=== PATIENT | female | born 1955 | race Caucasian/White ===

== ENCOUNTER 2018-07-18 13:00 | Outpatient (RCR) | payer OTHER, SELFPAY ==
--- NOTE | 2018-05-03 18:36 | PT.OIE ---
Current Diagnoses Other female genital prolapse (05/03/18) Provider Visit Care Team Role Provider Type Wilder Mcintyre, pouch maker Provider Non-Staff Primary Care Provider Specialty: Medical Address: [address] [place] [address], [id number] Email: Mirian Tay MD Attending Provider Physician Specialty: NANNY BABYSITTER Address: [address] [place] [address], [id number] Email: [email or web address] Physical Therapy Initial Evaluation PT-OP-A Visit Information Start: 05/03/18 18:12 Freq: Status: Active Protocol: Document 05/03/18 18:12 [facility] (Rec: 05/03/18 18:24 [facility] [email or web address]) Out-Patient Physical Therapy Visit Information Visit Information Visit Type Initial Evaluation Visit Start Time 14:30 Visit Stop Time 15:15 Total Visit Minutes 45 Visit Number 1 Evaluation Information Evaluation Date 05/03/18 PT-OP-B Current Condition Start: 05/03/18 18:12 Freq: Status: Active Protocol: Document 05/03/18 18:12 [facility] (Rec: 05/03/18 18:24 [facility] [email or web address]) Current Condition History of Current Condition Onset Date ongoing but worseing Current Complaints pelvic pressure, prolapse made worse with lifting or exertion History of Current Condition Mal is a 62 year old female with prolpased bladder and uterus as well as a 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 She is wanting to try strengthening her pelvic floor muscles to avoid surgery. She is currently using a pessary which is helping. She has started working on pelvic floor exercises with vaginal weights and has begun to use estriadol cream which are both seeming to help. Treatment Goals Patient/Caregiver Goals include avoiding surgery and improving pelvic floor strengh PT-OP-I Pelvic Floor Start: 05/03/18 18:12 Freq: Status: Active Protocol: Document 05/03/18 18:12 [facility] (Rec: 05/03/18 18:24 [facility] [email or web address]) Pelvic Floor Assessment Urine Pelvic Floor Surgery No Urinary Symptoms Prolapse Falling Out Feeling/Heavy Pelvic Clock Pelvic Clock 12-3 Atrophy Pelvic Clock 3-6 Atrophy Pelvic Clock 6-9 Guarding Pelvic Clock 9-12 Atrophy Prolapse Uterine Prolapse Grade 2 Cystocele Grade 2 SEMG (uV) Baseline 2 10 Second Contraction 8 Recruitment Pattern Fair Relaxation Good Holding Fair Stability of Hold Fair SEMG Stability of Rest Good Contraction Ability Voluntary Contraction Weak Manual Muscle Testing Left 3 Manual Muscle Testing Right 2 Manual Muscle Testing Anterior 3 Manual Muscle Testing Posterior 3 PT-OP-M Strength Start: 05/03/18 18:12 Freq: Status: Active Protocol: Document 05/03/18 18:12 [facility] (Rec: 05/03/18 18:24 [facility] [email or web address]) Hip Strength Hip Manual Muscle Testing Right Abduction 4 Good PT-OP-T Assessment and Plan Start: 05/03/18 18:12 Freq: Status: Active Protocol: Document 05/03/18 18:24 [facility] (Rec: 05/03/18 18:36 [facility] [email or web address]) Physical Therapy Assessment Rehab Potential Rehabilitation Potential Excellent Evaluation Complexity Number of Personal Factors/Comorbidities 0 Number of Body Systems Impaired 1-2 Clinical Presentation at Evaluation Stable Impairments Impairments Activity Tolerance Soft Tissue Mobility Strength Tone Other Impairments pelvic organ prolapse Goals Four Impairment decreased endurance of the pelvic floor Short Term Goal (STG) Improve endurance of the pelvic floor to 10 second hold time in supine STG Duration 6 weeks Three Impairment right sided hip ER weakness Adhesive Bandage Machine Operator Goal (LTG) Mal is instructed in a home exercise program for the right hip ER to help with lateral pelvic floor recruitment Two Impairment decreased right iliococcygeus recruitment Short Term Goal (STG) Improve facilitation of the right lateral wall of the levator ani STG Duration 5 weeks One Impairment weakness of the pelvic floor with pelvic organ prolapse Adhesive Bandage Machine Operator Goal (LTG) Improve strength of the pelvic floor for improved support of the bladder and uterus. LTG Duration 8 weeks Assessment Summary Assessment Mal presents to physical therapy with uterine prolapse and cystocele as well as a large fibroid tumor in the uterus. The uterus feels more prominant on her left side with internal examination. Mal is able to facilitate her pelvic floor in all parts but is very weak on the right lateral wall of the levator ani. She is also weak and tight on this side in her hip ER. Mal responded well today to EMG biofeedback and tactile cueing for pelvic floor facilitation. We will work on strengthening for her for 8 weeks and the re- evaluate if she is more supported or if she needs surgery Physical Therapy Plan Frequency and Duration Frequency of Treatment 1x/Week Duration of Treatment 8 weeks Plan of Care Start Date 05/03/18 Plan of Care End Date 06/28/18 Therapeutic Interventions Therapeutic Interventions Home Exercise Program Manual Therapy Neuromuscular Re-education Self-Care/Home Management Soft Tissue Mobilization Therapeutic Exercises Modalities Biofeedback
--- NOTE | 2018-05-03 18:36 | PT.OPPOC ---
Current Diagnoses Other female genital prolapse (05/03/18) Provider Visit Care Team Role Provider Type Wilder Mcintyre, guidance counselor Provider Non-Staff Primary Care Provider Specialty: Medical Address: [address] [place] [address], [id number] Email: Mirian Tay MD Attending Provider Physician Specialty: CASINO WORKER Address: [address] [place] [address], [id number] Email: [email or web address] Plan Of Care PT-OP-T Assessment and Plan Start: 05/03/18 18:12 Freq: Status: Active Protocol: Document 05/03/18 18:24 [facility] (Rec: 05/03/18 18:36 [facility] [email or web address]) Physical Therapy Assessment Rehab Potential Rehabilitation Potential Excellent Evaluation Complexity Number of Personal Factors/Comorbidities 0 Number of Body Systems Impaired 1-2 Clinical Presentation at Evaluation Stable Impairments Impairments Activity Tolerance Soft Tissue Mobility Strength Tone Other Impairments pelvic organ prolapse Goals Four Impairment decreased endurance of the pelvic floor Short Term Goal (STG) Improve endurance of the pelvic floor to 10 second hold time in supine STG Duration 6 weeks Three Impairment right sided hip ER weakness Dehydrogenation Supervisor Goal (LTG) Mal is instructed in a home exercise program for the right hip ER to help with lateral pelvic floor recruitment Two Impairment decreased right iliococcygeus recruitment Short Term Goal (STG) Improve facilitation of the right lateral wall of the levator ani STG Duration 5 weeks One Impairment weakness of the pelvic floor with pelvic organ prolapse Senior Living Goal (LTG) Improve strength of the pelvic floor for improved support of the bladder and uterus. LTG Duration 8 weeks Assessment Summary Assessment Mal presents to physical therapy with uterine prolapse and cystocele as well as a large fibroid tumor in the uterus. The uterus feels more prominant on her left side with internal examination. Mal is able to facilitate her pelvic floor in all parts but is very weak on the right lateral wall of the levator ani. She is also weak and tight on this side in her hip ER. Mal responded well today to EMG biofeedback and tactile cueing for pelvic floor facilitation. We will work on strengthening for her for 8 weeks and the re- evaluate if she is more supported or if she needs surgery Physical Therapy Plan Frequency and Duration Frequency of Treatment 1x/Week Duration of Treatment 8 weeks Plan of Care Start Date 05/03/18 Plan of Care End Date 06/28/18 Therapeutic Interventions Therapeutic Interventions Home Exercise Program Manual Therapy Neuromuscular Re-education Self-Care/Home Management Soft Tissue Mobilization Therapeutic Exercises Modalities Biofeedback Plan of Care Dates Plan of Care Start Date 05/03/18 Plan of Care End Date 06/28/18 Please Sign and Return: I have reviewed this Plan of Care and certify that the skilled therapy services above are required to meet the patient?s needs. Physician Signature Date Printed Name and Credentials Clinical Instructor Signature Printed Name and Credentials
--- NOTE | 2018-05-10 17:46 | PT.OTN ---
Current Diagnoses Other female genital prolapse (05/09/18) Physical Therapy Treatment Note PT-OP-A Visit Information Start: 05/03/18 18:12 Freq: Status: Active Protocol: Document 05/09/18 17:35 [facility] (Rec: 05/10/18 17:46 [facility] [email or web address]) Out-Patient Physical Therapy Visit Information Visit Information Visit Type Treatment Note Visit Start Time 12:15 Visit Stop Time 01:00 Total Visit Minutes 45 Visit Number 2 Evaluation Information Evaluation Date 05/03/18 PT-OP-B Current Condition Start: 05/03/18 18:12 Freq: Status: Active Protocol: Document 05/03/18 18:12 [facility] (Rec: 05/03/18 18:24 [facility] [email or web address]) Current Condition History of Current Condition Onset Date ongoing but worseing Current Complaints pelvic pressure, prolapse made worse with lifting or exertion History of Current Condition Mal is a 62 year old female with prolpased bladder and uterus as well as a 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 She is wanting to try strengthening her pelvic floor muscles to avoid surgery. She is currently using a pessary which is helping. She has started working on pelvic floor exercises with vaginal weights and has begun to use estriadol cream which are both seeming to help. Treatment Goals Patient/Caregiver Goals include avoiding surgery and improving pelvic floor strengh PT-OP-I Pelvic Floor Start: 05/03/18 18:12 Freq: Status: Active Protocol: Document 05/03/18 18:12 [facility] (Rec: 05/03/18 18:24 [facility] [email or web address]) Pelvic Floor Assessment Urine Pelvic Floor Surgery No Urinary Symptoms Prolapse Falling Out Feeling/Heavy Pelvic Clock Pelvic Clock 12-3 Atrophy Pelvic Clock 3-6 Atrophy Pelvic Clock 6-9 Guarding Pelvic Clock 9-12 Atrophy Prolapse Uterine Prolapse Grade 2 Cystocele Grade 2 SEMG (uV) Baseline 2 10 Second Contraction 8 Recruitment Pattern Fair Relaxation Good Holding Fair Stability of Hold Fair SEMG Stability of Rest Good Contraction Ability Voluntary Contraction Weak Manual Muscle Testing Left 3 Manual Muscle Testing Right 2 Manual Muscle Testing Anterior 3 Manual Muscle Testing Posterior 3 PT-OP-M Strength Start: 05/03/18 18:12 Freq: Status: Active Protocol: Document 05/03/18 18:12 [facility] (Rec: 05/03/18 18:24 [facility] [email or web address]) Hip Strength Hip Manual Muscle Testing Right Abduction 4 Good PT-OP-Q Treatments Start: 05/03/18 18:12 Freq: Status: Active Protocol: Document 05/09/18 17:35 [facility] (Rec: 05/10/18 17:46 [facility] [email or web address]) Therapeutic Exercises Supine Exercises 4 Supine Exercise Name lower abdominal progression 3 Supine Exercise Name roll outs 2 Supine Exercise Name pelvic floor quick contractions 1 Supine Exercise Name pelvic floor long holds Sidelying Exercises 2 Sidelying Exercise Name sidelying leg lifts 1 Sidelying Exercise Name clam shells Neuro Re-Education Treatment Other Activities 2 Details pelvic floor neuro re-ed on EMG biofeedback 1 Details NMES for pelvic floor neuro re -education Self-Care/Home Management Treatment Education Patient Education Home Exercise Program PT-OP-T Assessment and Plan Start: 05/03/18 18:12 Freq: Status: Active Protocol: Document 05/09/18 17:35 [facility] (Rec: 05/10/18 17:46 [facility] [email or web address]) Physical Therapy Assessment Assessment Summary Assessment Mal tolerated treatment well today and did like having her pelvis tilted on the wedge to take pressure off the uterus. I added in NMES and we will do one more trial of this next visit Physical Therapy Plan Frequency and Duration Frequency of Treatment 1x/Week Duration of Treatment 8 weeks Plan of Care Start Date 05/03/18 Plan of Care End Date 06/28/18 Therapeutic Interventions Therapeutic Interventions Home Exercise Program Manual Therapy Neuromuscular Re-education Self-Care/Home Management Soft Tissue Mobilization Therapeutic Exercises Modalities Biofeedback Next Visit Focus/Plan Next Note Type Treatment Note Next Visit Plan continue working on pelvic floor strengthening. Re- evaluate using NMES and add in templates for eccentric control
--- NOTE | 2018-05-29 17:44 | PT.OTN ---
Current Diagnoses Other female genital prolapse (05/24/18) Physical Therapy Treatment Note PT-OP-A Visit Information Start: 05/03/18 18:12 Freq: Status: Active Protocol: Document 05/24/18 14:54 [facility] (Rec: 05/24/18 14:56 [facility] [email or web address]) Out-Patient Physical Therapy Visit Information Visit Information Visit Type Treatment Note Visit Start Time 15:30 Visit Stop Time 16:15 Total Visit Minutes 45 Visit Number 3 PT-OP-B Current Condition Start: 05/03/18 18:12 Freq: Status: Active Protocol: Document 05/03/18 18:12 [facility] (Rec: 05/03/18 18:24 [facility] [email or web address]) Current Condition History of Current Condition Onset Date ongoing but worseing Current Complaints pelvic pressure, prolapse made worse with lifting or exertion History of Current Condition Mal is a 62 year old female with prolpased bladder and uterus as well as a 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 She is wanting to try strengthening her pelvic floor muscles to avoid surgery. She is currently using a pessary which is helping. She has started working on pelvic floor exercises with vaginal weights and has begun to use estriadol cream which are both seeming to help. Treatment Goals Patient/Caregiver Goals include avoiding surgery and improving pelvic floor strengh PT-OP-C Subjective Start: 05/03/18 18:12 Freq: Status: Active Protocol: Document 05/24/18 14:54 [facility] (Rec: 05/24/18 14:56 [facility] [email or web address]) OP-PT Subjective Patient Comments Patient Comments Mal reports feeling very fatigued in her pelvic floor following the NMES last visit PT-OP-I Pelvic Floor Start: 05/03/18 18:12 Freq: Status: Active Protocol: Document 05/03/18 18:12 [facility] (Rec: 05/03/18 18:24 [facility] [email or web address]) Pelvic Floor Assessment Urine Pelvic Floor Surgery No Urinary Symptoms Prolapse Falling Out Feeling/Heavy Pelvic Clock Pelvic Clock 12-3 Atrophy Pelvic Clock 3-6 Atrophy Pelvic Clock 6-9 Guarding Pelvic Clock 9-12 Atrophy Prolapse Uterine Prolapse Grade 2 Cystocele Grade 2 SEMG (uV) Baseline 2 10 Second Contraction 8 Recruitment Pattern Fair Relaxation Good Holding Fair Stability of Hold Fair SEMG Stability of Rest Good Contraction Ability Voluntary Contraction Weak Manual Muscle Testing Left 3 Manual Muscle Testing Right 2 Manual Muscle Testing Anterior 3 Manual Muscle Testing Posterior 3 PT-OP-M Strength Start: 05/03/18 18:12 Freq: Status: Active Protocol: Document 05/03/18 18:12 [facility] (Rec: 05/03/18 18:24 [facility] [email or web address]) Hip Strength Hip Manual Muscle Testing Right Abduction 4 Good PT-OP-Q Treatments Start: 05/03/18 18:12 Freq: Status: Active Protocol: Document 05/24/18 17:41 [facility] (Rec: 05/29/18 17:44 [facility] [email or web address]) Therapeutic Exercises Supine Exercises 5 Supine Exercise Name adductor squeeze Reps/Minutes 3x10 4 Supine Exercise Name lower abdominal progression 3 Supine Exercise Name roll outs 2 Supine Exercise Name pelvic floor quick contractions 1 Supine Exercise Name pelvic floor long holds Sidelying Exercises 2 Sidelying Exercise Name sidelying leg lifts 1 Sidelying Exercise Name clam shells PT-OP-T Assessment and Plan Start: 05/03/18 18:12 Freq: Status: Active Protocol: Document 05/24/18 17:41 [facility] (Rec: 05/29/18 17:44 [facility] [email or web address]) Physical Therapy Assessment Assessment Summary Assessment NMES worked well again for Mal for improving sensation of her pelvic floor. She may benefit from having a home rental unit. Physical Therapy Plan Next Visit Focus/Plan Next Note Type Treatment Note Next Visit Plan begin eccentric control with templates and reassess symtoms
--- NOTE | 2018-06-03 17:57 | PT.OTN ---
Current Diagnoses Other female genital prolapse (05/31/18) Physical Therapy Treatment Note PT-OP-A Visit Information Start: 05/03/18 18:12 Freq: Status: Active Protocol: Document 05/31/18 17:51 [facility] (Rec: 06/03/18 17:57 [facility] [email or web address]) Out-Patient Physical Therapy Visit Information Visit Information Visit Type Treatment Note Visit Start Time 14:30 Visit Stop Time 15:15 Total Visit Minutes 45 Visit Number 4 PT-OP-B Current Condition Start: 05/03/18 18:12 Freq: Status: Active Protocol: Document 05/03/18 18:12 [facility] (Rec: 05/03/18 18:24 [facility] [email or web address]) Current Condition History of Current Condition Onset Date ongoing but worseing Current Complaints pelvic pressure, prolapse made worse with lifting or exertion History of Current Condition Mal is a 62 year old female with prolpased bladder and uterus as well as a 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 She is wanting to try strengthening her pelvic floor muscles to avoid surgery. She is currently using a pessary which is helping. She has started working on pelvic floor exercises with vaginal weights and has begun to use estriadol cream which are both seeming to help. Treatment Goals Patient/Caregiver Goals include avoiding surgery and improving pelvic floor strengh PT-OP-C Subjective Start: 05/03/18 18:12 Freq: Status: Active Protocol: Document 05/31/18 17:51 [facility] (Rec: 06/03/18 17:57 [facility] [email or web address]) OP-PT Subjective Patient Comments Patient Comments Mal notes she is getting a new pessary today. She is feeling like maybe she has hit a plateau PT-OP-I Pelvic Floor Start: 05/03/18 18:12 Freq: Status: Active Protocol: Document 05/03/18 18:12 [facility] (Rec: 05/03/18 18:24 [facility] [email or web address]) Pelvic Floor Assessment Urine Pelvic Floor Surgery No Urinary Symptoms Prolapse Falling Out Feeling/Heavy Pelvic Clock Pelvic Clock 12-3 Atrophy Pelvic Clock 3-6 Atrophy Pelvic Clock 6-9 Guarding Pelvic Clock 9-12 Atrophy Prolapse Uterine Prolapse Grade 2 Cystocele Grade 2 SEMG (uV) Baseline 2 10 Second Contraction 8 Recruitment Pattern Fair Relaxation Good Holding Fair Stability of Hold Fair SEMG Stability of Rest Good Contraction Ability Voluntary Contraction Weak Manual Muscle Testing Left 3 Manual Muscle Testing Right 2 Manual Muscle Testing Anterior 3 Manual Muscle Testing Posterior 3 PT-OP-M Strength Start: 05/03/18 18:12 Freq: Status: Active Protocol: Document 05/03/18 18:12 [facility] (Rec: 05/03/18 18:24 [facility] [email or web address]) Hip Strength Hip Manual Muscle Testing Right Abduction 4 Good PT-OP-Q Treatments Start: 05/03/18 18:12 Freq: Status: Active Protocol: Document 05/31/18 17:51 [facility] (Rec: 06/03/18 17:57 [facility] [email or web address]) Therapeutic Exercises Supine Exercises 6 Supine Exercise Name templates for coordination and eccentric control 5 Supine Exercise Name adductor squeeze Reps/Minutes 3x10 4 Supine Exercise Name lower abdominal progression 3 Supine Exercise Name roll outs 2 Supine Exercise Name pelvic floor quick contractions 1 Supine Exercise Name pelvic floor long holds Sidelying Exercises 2 Sidelying Exercise Name sidelying leg lifts 1 Sidelying Exercise Name clam shells Neuro Re-Education Treatment Other Activities 2 Details pelvic floor neuro re-ed on EMG biofeedback 1 Details NMES for pelvic floor neuro re -education PT-OP-T Assessment and Plan Start: 05/03/18 18:12 Freq: Status: Active Protocol: Document 05/31/18 17:51 [facility] (Rec: 06/03/18 17:57 [facility] [email or web address]) Physical Therapy Assessment Assessment Summary Assessment Manual reassessment was done today and Mal is recruiting more of her lateral stroud of the levator ani than she was at her initial evaluation. The uterus feels very low though and more on the left side. I am not sure if just strengthening is enough for her. With her new pessary next visit we will try dynamic standing activities. Physical Therapy Plan Frequency and Duration Frequency of Treatment 1x/Week Duration of Treatment 8 weeks Plan of Care Start Date 05/03/18 Plan of Care End Date 06/28/18 Therapeutic Interventions Therapeutic Interventions Home Exercise Program Manual Therapy Neuromuscular Re-education Self-Care/Home Management Soft Tissue Mobilization Therapeutic Exercises Modalities Biofeedback Next Visit Focus/Plan Next Note Type Treatment Note Next Visit Plan trial of dynamic standing activities
--- NOTE | 2018-06-12 08:57 | PT.OTN ---
Current Diagnoses Other female genital prolapse (06/07/18) Physical Therapy Treatment Note PT-OP-A Visit Information Start: 05/03/18 18:12 Freq: Status: Active Protocol: Document 06/07/18 15:00 [facility] (Rec: 06/12/18 08:57 [facility] [email or web address]) Out-Patient Physical Therapy Visit Information Visit Information Visit Type Treatment Note Visit Start Time 14:30 Visit Stop Time 15:15 Total Visit Minutes 45 Visit Number 5 PT-OP-B Current Condition Start: 05/03/18 18:12 Freq: Status: Active Protocol: Document 05/03/18 18:12 [facility] (Rec: 05/03/18 18:24 [facility] [email or web address]) Current Condition History of Current Condition Onset Date ongoing but worseing Current Complaints pelvic pressure, prolapse made worse with lifting or exertion History of Current Condition Mal is a 62 year old female with prolpased bladder and uterus as well as a 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 She is wanting to try strengthening her pelvic floor muscles to avoid surgery. She is currently using a pessary which is helping. She has started working on pelvic floor exercises with vaginal weights and has begun to use estriadol cream which are both seeming to help. Treatment Goals Patient/Caregiver Goals include avoiding surgery and improving pelvic floor strengh PT-OP-C Subjective Start: 05/03/18 18:12 Freq: Status: Active Protocol: Document 06/07/18 15:00 [facility] (Rec: 06/12/18 08:57 [facility] [email or web address]) OP-PT Subjective Patient Comments Patient Comments Mal reports she hasd gotten her new pessary. It fits well . She is wanting to go ahead and try the dynamic standing exercises and ball exercises today PT-OP-I Pelvic Floor Start: 05/03/18 18:12 Freq: Status: Active Protocol: Document 05/03/18 18:12 [facility] (Rec: 05/03/18 18:24 [facility] [email or web address]) Pelvic Floor Assessment Urine Pelvic Floor Surgery No Urinary Symptoms Prolapse Falling Out Feeling/Heavy Pelvic Clock Pelvic Clock 12-3 Atrophy Pelvic Clock 3-6 Atrophy Pelvic Clock 6-9 Guarding Pelvic Clock 9-12 Atrophy Prolapse Uterine Prolapse Grade 2 Cystocele Grade 2 SEMG (uV) Baseline 2 10 Second Contraction 8 Recruitment Pattern Fair Relaxation Good Holding Fair Stability of Hold Fair SEMG Stability of Rest Good Contraction Ability Voluntary Contraction Weak Manual Muscle Testing Left 3 Manual Muscle Testing Right 2 Manual Muscle Testing Anterior 3 Manual Muscle Testing Posterior 3 PT-OP-M Strength Start: 05/03/18 18:12 Freq: Status: Active Protocol: Document 05/03/18 18:12 [facility] (Rec: 05/03/18 18:24 [facility] [email or web address]) Hip Strength Hip Manual Muscle Testing Right Abduction 4 Good PT-OP-Q Treatments Start: 05/03/18 18:12 Freq: Status: Active Protocol: Document 06/07/18 15:00 [facility] (Rec: 06/12/18 08:57 [facility] [email or web address]) Therapeutic Exercises Supine Exercises 4 Supine Exercise Name lower abdominal progression Sidelying Exercises 2 Sidelying Exercise Name sidelying leg lifts Standing Exercises 1 Standing Exercise Name standing dynamic squats, single leg squats and squats with side steps Other Exercises 1 Other Exercise Name ball exercises Comments planks, pelvic floor facilitation, bridges with ball squeeze, seated cat/co PT-OP-T Assessment and Plan Start: 05/03/18 18:12 Freq: Status: Active Protocol: Document 06/07/18 15:00 [facility] (Rec: 06/12/18 08:57 [facility] [email or web address]) Physical Therapy Assessment Assessment Summary Assessment good tolerance for dynamic exercises. Will review again next visit Physical Therapy Plan Frequency and Duration Frequency of Treatment 1x/Week Duration of Treatment 8 weeks Plan of Care Start Date 05/03/18 Plan of Care End Date 06/28/18 Next Visit Focus/Plan Next Note Type Treatment Note Next Visit Plan continue progressing dynamic exercises
--- NOTE | 2018-07-19 09:42 | PT.OTN ---
Current Diagnoses Other female genital prolapse (07/18/18) Physical Therapy Treatment Note PT-OP-A Visit Information Start: 05/03/18 18:12 Freq: Status: Active Protocol: Document 07/18/18 13:00 [facility] (Rec: 07/19/18 09:41 [facility] [email or web address]) Out-Patient Physical Therapy Visit Information Visit Information Visit Type Progress Note Visit Start Time 13:00 Visit Stop Time 13:45 Total Visit Minutes 45 Visit Number 6 Evaluation Information Evaluation Date 05/03/18 PT-OP-B Current Condition Start: 05/03/18 18:12 Freq: Status: Active Protocol: Document 05/03/18 18:12 [facility] (Rec: 05/03/18 18:24 [facility] [id number]) Current Condition History of Current Condition Onset Date ongoing but worseing Current Complaints pelvic pressure, prolapse made worse with lifting or exertion History of Current Condition Mal is a 62 year old female with prolpased bladder and uterus as well as a 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 She is wanting to try strengthening her pelvic floor muscles to avoid surgery. She is currently using a pessary which is helping. She has started working on pelvic floor exercises with vaginal weights and has begun to use estriadol cream which are both seeming to help. Treatment Goals Patient/Caregiver Goals include avoiding surgery and improving pelvic floor strengh PT-OP-C Subjective Start: 05/03/18 18:12 Freq: Status: Active Protocol: Document 07/18/18 13:00 [facility] (Rec: 07/19/18 09:41 [facility] [email or web address]) OP-PT Subjective Patient Comments Patient Comments Mal reports she would like to try the vaginal weights today in standing. She has been working on her exercises and using the pessary. She is able to get by with this but still feels pressure at the end of the day especially if she has done a lot PT-OP-I Pelvic Floor Start: 05/03/18 18:12 Freq: Status: Active Protocol: Document 05/03/18 18:12 [facility] (Rec: 05/03/18 18:24 [facility] [email or web address]) Pelvic Floor Assessment Urine Pelvic Floor Surgery No Urinary Symptoms Prolapse Falling Out Feeling/Heavy Pelvic Clock Pelvic Clock 12-3 Atrophy Pelvic Clock 3-6 Atrophy Pelvic Clock 6-9 Guarding Pelvic Clock 9-12 Atrophy Prolapse Uterine Prolapse Grade 2 Cystocele Grade 2 SEMG (uV) Baseline 2 10 Second Contraction 8 Recruitment Pattern Fair Relaxation Good Holding Fair Stability of Hold Fair SEMG Stability of Rest Good Contraction Ability Voluntary Contraction Weak Manual Muscle Testing Left 3 Manual Muscle Testing Right 2 Manual Muscle Testing Anterior 3 Manual Muscle Testing Posterior 3 PT-OP-M Strength Start: 05/03/18 18:12 Freq: Status: Active Protocol: Document 05/03/18 18:12 [facility] (Rec: 05/03/18 18:24 [facility] [email or web address]) Hip Strength Hip Manual Muscle Testing Right Abduction 4 Good PT-OP-Q Treatments Start: 05/03/18 18:12 Freq: Status: Active Protocol: Document 07/18/18 13:00 [facility] (Rec: 07/19/18 09:41 [facility] [email or web address]) Therapeutic Exercises Supine Exercises 1 Supine Exercise Name pelvic floor long holds Standing Exercises 1 Standing Exercise Name standing dynamic squats, single leg squats and squats with side steps Other Exercises 3 Other Exercise Name quadraped cat cow and thoracic rotation 2 Other Exercise Name single leg squats, side steps with theraband 1 Other Exercise Name ball exercises Comments planks, pelvic floor facilitation, bridges with ball squeeze, seated cat/co PT-OP-T Assessment and Plan Start: 05/03/18 18:12 Freq: Status: Active Protocol: Document 07/18/18 13:00 [facility] (Rec: 07/19/18 09:41 [facility] [email or web address]) Physical Therapy Assessment Assessment Summary Assessment Mal has shown good progress interms of Pelvic floor strength overall. She has actually doubled her strength on EMG biofeedback since beginning treatment. We have progressed to dynamic standing exercises and she is tolerating this well with her pessary in. We did try the pelvic weights today in standing but they tend to slip out. She is able to use the weights in supine as something to contract around and give proprioception. She would like one additional visit in PT to review all exercises and then she will be discharged to a independent program. She will then follow up with you should she decide that she wants surgery. At this point she feels she can manage her symptoms with the exercises and pessary. Physical Therapy Plan Frequency and Duration Frequency of Treatment 1x/Week Duration of Treatment 4 Plan of Care Start Date 07/18/18 Plan of Care End Date 08/17/18 Therapeutic Interventions Therapeutic Interventions Home Exercise Program Manual Therapy Neuromuscular Re-education Self-Care/Home Management Soft Tissue Mobilization Therapeutic Exercises Modalities Biofeedback Next Visit Focus/Plan Next Note Type Treatment Note Next Visit Plan continue for one visit to ensure independence with HEP
--- NOTE | 2018-10-03 10:59 | PT.OPDS ---
Current Diagnoses Other female genital prolapse (07/18/18) Provider Visit Care Team Role Provider Type Wilder Mcintyre, boilermaker central steam plant Provider Non-Staff Primary Care Provider Specialty: Medical Address: [address] [place] [address], [id number] Email: Mirian Tay MD Attending Provider Physician Specialty: LOCAL COORDINATOR Address: [address] [place] [address], [address] Email: [email or web address] Visit Number Visit Number 6 Discharge Summary PT-OP-B Current Condition Start: 05/03/18 18:12 Freq: Status: Active Protocol: Document 05/03/18 18:12 [facility] (Rec: 05/03/18 18:24 [facility] [email or web address]) Current Condition History of Current Condition Onset Date ongoing but worseing Current Complaints pelvic pressure, prolapse made worse with lifting or exertion History of Current Condition Mal is a 62 year old female with prolpased bladder and uterus as well as a 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 She is wanting to try strengthening her pelvic floor muscles to avoid surgery. She is currently using a pessary which is helping. She has started working on pelvic floor exercises with vaginal weights and has begun to use estriadol cream which are both seeming to help. Treatment Goals Patient/Caregiver Goals include avoiding surgery and improving pelvic floor strengh PT-OP-C Subjective Start: 05/03/18 18:12 Freq: Status: Active Protocol: Document 07/18/18 13:00 [facility] (Rec: 07/19/18 09:41 [facility] [email or web address]) OP-PT Subjective Patient Comments Patient Comments Mal reports she would like to try the vaginal weights today in standing. She has been working on her exercises and using the pessary. She is able to get by with this but still feels pressure at the end of the day especially if she has done a lot PT-OP-I Pelvic Floor Start: 05/03/18 18:12 Freq: Status: Active Protocol: Document 05/03/18 18:12 [facility] (Rec: 05/03/18 18:24 [facility] [email or web address]) Pelvic Floor Assessment Urine Pelvic Floor Surgery No Urinary Symptoms Prolapse Falling Out Feeling/Heavy Pelvic Clock Pelvic Clock 12-3 Atrophy Pelvic Clock 3-6 Atrophy Pelvic Clock 6-9 Guarding Pelvic Clock 9-12 Atrophy Prolapse Uterine Prolapse Grade 2 Cystocele Grade 2 SEMG (uV) Baseline 2 10 Second Contraction 8 Recruitment Pattern Fair Relaxation Good Holding Fair Stability of Hold Fair SEMG Stability of Rest Good Contraction Ability Voluntary Contraction Weak Manual Muscle Testing Left 3 Manual Muscle Testing Right 2 Manual Muscle Testing Anterior 3 Manual Muscle Testing Posterior 3 PT-OP-M Strength Start: 05/03/18 18:12 Freq: Status: Active Protocol: Document 05/03/18 18:12 [facility] (Rec: 05/03/18 18:24 [facility] [email or web address]) Hip Strength Hip Manual Muscle Testing Right Abduction 4 Good PT-OP-T Assessment and Plan Start: 05/03/18 18:12 Freq: Status: Active Protocol: Document 10/03/18 10:57 [facility] (Rec: 10/03/18 10:59 [facility] [email or web address]) Physical Therapy Assessment Assessment Summary Assessment Mal has shown good progress interms of Pelvic floor strength overall. She has actually doubled her strength on EMG biofeedback since beginning treatment. We have progressed to dynamic standing exercises and she is tolerating this well with her pessary in. We did try the pelvic weights today in standing but they tend to slip out. She is able to use the weights in supine as something to contract around and give proprioception. She will be discharged from PT at this time and will follow up with you should she decide that she wants surgery. At this point she feels she can manage her symptoms with the exercises and pessary. Physical Therapy Plan Discharge Physical Therapy Discharge Comments Mal feels independent with her home exercise program at this time
== END 2018-10-09 10:44 ==
LOC: PHYS 13:00
PROVIDERS: Family Provider Nurse Practitioner Family; PCP Nurse Practitioner Family; Visit Provider Obstetrics & Gynecology
DX: N81.89 Other female genital prolapse (principal)
CPT/HCPCS: 97110; 97112; 97161

== ENCOUNTER → 2024-04-17 12:31 | Outpatient (CLI) | payer MEDICARE, OTHER, SELFPAY ==
[2024-04-17 15:48] LABS: Cancer Antigen 125 14.6 U/mL (0-35)
== END ==
LOC: LAB 12:32
PROVIDERS: Family Provider Nurse Practitioner Family; PCP Registered Nurse; Referring Provider Obstetrics & Gynecology; Visit Provider Obstetrics & Gynecology
DX: N83.201 Unspecified ovarian cyst, right side (principal)
CPT/HCPCS: 36415; 86304

== ENCOUNTER 2024-09-23 06:28 | Day surgery (SDC) | payer MEDICARE, OTHER, SELFPAY ==
[2024-09-17 08:25] VITALS: BMI 22.4
[2024-09-23] VITALS (14 sets, daily range): BP systolic 94–121; BP diastolic 37–59; PULSE 54–107; RESP 10–18; TEMP 35.7–36.4; O2SAT 95–99; BMI 22.4
--- NOTE | 2024-09-23 | PATH_ITS ---
[facility] Accession Number: [id number] No. of containers..01 Tissue . 01 Material submitted: . uterus - CERVIX,UTERUS,BILATERAL FALLOPIAN TUBES . 01 Diagnosis: UTERUS, CERVIX, BILATERAL FALLOPIAN TUBES, HYSTERECTOMY AND BILATERAL SALPINGECTOMY: Uterus with atrophic endometrium and leiomyoma (7.5 cm). Histologicallly unremarkable cervix and bilateral fimbriated fallopian tubes. Negative for malignancy. [facility] 09/26/2024 1035 Local . 01 Electronically signed: . Katiuska Coulter DO, Pathologist NPI- [id number] . 01 Gross description: . Received in formalin with two patient identifiers and cervix, uterus, bilateral fallopian tubes, is a fragmented uterus (449 grams, 15.2 x 11.4 x 8.2 cm), with cervix (3.5 x 2.7 cm), and two attached unoriented fimbriated fallopian tubes (5.8 x 0.6 cm and 5.4 x 0.5 cm), with no additional adnexa. The serosa is kenny to violaceous and roughened. The ectocervix is kenny and wrinkled with a slit-like os 0.8 cm in diameter, and the cervical margin is inked blue. The endocervical canal has kenny herringbone mucosa and measures 3.8 cm in length. The endometrium is kenny to brown and velvety, and averages 0.1 cm thick. The myometrium is kenny and mildly trabecular with a large, well-circumscribed whorled area up to 7.5 cm in greatest dimension with o hemorrhage or necrosis identified. . Both tubes have kenny, smooth serosa with no cysts identified. The lumens are stellate and unremarkable. Sign Hanger sections are submitted as follows: . A1: Cervix. A2: Endometrium. A3: White whorled areas. A4: Longer fallopian tube to include one-half of bisected fimbriae and cross sections. A5: [place] fallopian tube to include one-half of bisected fimbriae and cross sections. ([id number]) /MRV 09/24/2024 1921 Local . 01 Pathologist provided ICD-10: D25.9 . 01 CPT . 192382 Specimen Comment: A courtesy copy of this report has been sent to [phone] Performed at: [address] [id number] MD Parviz Valdez MD Phone: [phone]
[2024-09-23] MEDS: LACTATED RINGERS 1,000 ML 42 ML IV (07:15)
--- NOTE | 2024-09-23 07:30 | P.HPOB_ITS ---
History of Present Illness History of Present Illness Reason for admission: pelvic prolapse Narrative: Mal Ledezma is a 69 year old female 1 para 1 who presents for an LAVH/bilateral salpingectomy/anterior-posterior repair/possible removal of 1 or both ovaries. This is being done due to uterine prolapse, symptomatic cystocele and rectocele, and a right ovarian cyst. [facility] Medical History (Updated 09/17/24 @ 08:37 by Lilliana Jo RN) History of endometrial biopsy (10/2021) HLD (hyperlipidemia) Osteopenia DDD (degenerative disc disease) Osteoarthritis Carlos thyroiditis Concussion (2023) Surgical History (Updated 09/17/24 @ 08:37 by Lilliana Jo RN) Status post osteotomy (10/16/14) Hx of appendectomy (06/21/18) Social History household members: spouse Smoking Status: Never smoker alcohol intake: current Meds Home Medications and Allergies Home Medications Medication Instructions Recorded Confirmed Type estradiol 0.01% (0.1 mg/gram) 0.1 % vaginal 2XW #42.5 grams 09/05/19 08/22/24 Rx vaginal cream (Estrace) thyroid (pork) 60 mg tablet (RIM FIRE CHARGER OPERATOR 60 mg PO DAILY 04/17/24 08/22/24 History Thyroid) Allergies Allergy/AdvReac Type Severity Reaction Status Date / Time No Known Drug Allergies Allergy Verified 09/23/24 07:26 Exam Vital Signs (past 8 hours): - 09/23/24 07:16 Temperature 97.3 F L Pulse Rate 54 L Respiratory Rate 18 Blood Pressure 111/59 L Pulse Oximetry 99 Oxygen Delivery Method Room Air Oxygen Delivery Method Room Air Narrative Exam Narrative: HEENT: No thyromegaly, no anterior cervical or supraclavicular lymphadenopathy. Lungs:Clear to auscultation bilaterally, no wheezes. Cardiovascular: Regular rate and rhythm, no murmurs, rubs, or gallops. Abdomen: Well-healed scars. No hepatosplenomegaly. No masses palpable. External genitalia: Normal Vagina: Cystocele and rectocele Cervix: Normal Bimanual exam: 8 Week size prolapse uterus. Mobile. Extremities: No edema Assessment & Plan Assessment & Plan narrative: Assessment: 69-year-old 1 para 1 with uterine prolapse, cystocele and rectocele, and a right ovarian cyst Plan: LAVH/bilateral salpingectomy/anterior-posterior repair/possible removal of 1 or both ovaries The risks, benefits, and alternatives to the procedure were explained to the patient. The risks including bleeding, infection, injury to the bowel, bladder, or ureters. She also understands that there is a possibility of an open procedure. She understands all of these risks and agrees to proceed. A full par Q was held and consent form was signed. Time-Based Coding :: [TOTAL MINUTES] spent with patient and on the chart (including review of chart, obtaining history, exam, reviewing outside data, placing orders, documenting exam and treatment plan, and counseling patient) on [DATE].
--- NOTE | 2024-09-23 07:33 | PM.PREOP ---
Pre-operative Note Interval Note History & Physical reviewed/Exam performed by Physician: Yes Changes to H&P: No H&P completed within 30 days and has changed as indicated here:: 09/23/24
[2024-09-23] MEDS: CEFAZOLIN 2 GM/100 ML PREMIX 100 ML IV (07:55)
[2024-09-23] MEDS: ACETAMINOPHEN IV 1,000 MG/100 ML VIAL 400 MG IV (08:00)
[2024-09-23] MEDS: BUPIVACAINE 0.5% W/ EPI (PF) 30 ML VIAL 45 ML INJ (08:49)
--- NOTE | 2024-09-23 09:43 | SUR.OPER ---
0943 UPDATED ON PROGRESS
--- NOTE | 2024-09-23 10:43 | PM.GYNOP.1 ---
Operative Date/Time/Diagnoses Date of procedure: 09/23/24 Time of procedure: 10:43 Pre-op diagnosis: Uterine prolapse Cystocele and rectocele Right ovarian cyst Post-op diagnosis: same Procedure & Clinicians Procedure: Procedures Operation Date: 09/23/24 07:45 Actual Procedure Side Surgeon p Laparoscopic Assisted Vaginal Hysterectomy with bilateral salpingectomy Mirian Tay MD s Anterior/Posterior Repair Mirian Tay MD Indications: 69-year-old 1 para 1 with symptomatic uterine prolapse, cystocele and rectocele. Right ovarian cyst seen on ultrasound Surgeon: Mirian Tay Handicraft Or Hobby Shop Manager: Kari Rhodes Anesthesia Type: General and Local Operative Notes Findings: 10 week size multifibroid, prolapsed uterus Normal tubes bilaterally Normal ovaries Third-degree rectocele Closure Type: primary Specimen(s): left tube, right tube and uterus Applied: catheter (Marie to continuous drainage) and other (Betadine moistened vaginal packing in place) Estimated blood loss (mL): 250 Blood products transfused: none Procedure in detail: The patient was taken to the operating room where she was placed in the dorsal supine position. After adequate general endotracheal anesthesia was achieved, she was placed in the dorsal lithotomy position, and prepped and draped in the usual sterile fashion. A time-out was performed. A bivalve speculum was placed into the vagina. Single-tooth tenaculum was placed on the anterior lip of the cervix. The Zumi uterine manipulator passed easily into the endometrial cavity. The balloon was inflated. The single-tooth tenaculum was removed from the anterior lip of the cervix. The bivalve speculum was removed from the vagina. Attention was then turned to the abdomen where 4 cc of 0.5% Marcaine with epinephrine were injected in the umbilical fold. A 5 mm incision was made. The Veress needle was placed into the peritoneal cavity, and its placement confirmed by aspiration and drop test. The abdominal cavity was insufflated with 4.2 L of CO2. The Veress needle was removed, and a 5 mm trocar was placed with vis a view. Two other incisions were made 4 cm lateral to the midline at the level of the umbilicus, after 4 cc of 0.5% Marcaine with epinephrine were injected. Two 5 mm trocars were placed under direct visualization. The right tube was grasped with an atraumatic grasper. Using the power seal, the mesosalpinx on the right side was cauterized and cut all the way down to the uterus. The cornua of the uterus was grasped with an atraumatic grasper. The round ligament and broad ligament were cauterized and cut. This continued to the level of the uterine arteries. This was all repeated on the patient's left side. Attention was then turned to the vagina where a weighted speculum was placed into the vagina. A 4 tooth tenaculum was placed on the cervix. 10 cc of 0.5% Marcaine with epinephrine were injected circumferentially around the cervix. The cervix was circumscribed with a #10 blade. The bladder and rectum were dissected off of the lower uterine segment and cervix using an open moistened Ray-Sarahi. The uterosacral cardinal ligament complexes were clamped, transected, and suture ligated with 0 Vicryl. The uterine arteries were clamped, suture ligated, and transected with 0 Vicryl. There was a small piece of peritoneum on the left side and this was clamped and free tied with 0 Vicryl. Due to the size of the uterus a combination of morcellation and bivalving of the uterus occurred as well as shelling out a large fibroid to decompress the uterus. The uterus was handed off with the tubes for specimen. There was a small amount of bleeding noted from the left side. This was clamped with a right angle clamp and suture ligated with 0 Vicryl. Hemostasis was achieved. The vaginal cuff was closed with a series of interrupted sutures using 0 Vicryl. Hemostasis was achieved. A moistened sponge stick was placed into the vagina. The gloves were changed. The abdomen was re-insufflated with carbon dioxide gas. The pelvis was irrigated. There was no bleeding noted. The instruments were removed from the abdomen. The CO2 was allowed to escape. The incisions were closed with 4-0 Monocryl in a subcuticular fashion. Steri-Strips and Allevyn dressings were placed. Attention was turned back to the vagina where 2 Allis clamps were placed at the mucocutaneous junction. After the weight of the uterus had been removed, there was no significant cystocele. Wide Allis clamps were placed in the midline of the cystocele. 10 cc of 0.5% Marcaine with epinephrine were injected submucosally on either side. 4 cc of 0.25% Marcaine with epinephrine were injected at the posterior fourchette and mucocutaneous junction. A triangular piece of skin with a small amount of subcutaneous tissue was excised between the 2 Allis clamps extending down onto the perineal body. The mucosa was undermined with the Metzenbaum scissors and incised in the midline, moving the wide Allis clamps to the mucosa edge. This continued all the way to the apex of the rectocele. The underlying fascia was dissected off of the mucosa using a 10. Blade and an open moistened Ray-Sarahi. The fascia was reapproximated with 0 Vicryl in interrupted sutures. The excess vaginal mucosa was excised. The mucosa was closed with 2-0 Vicryl with simple interrupted sutures including the underlying fascia to close the space. At the introitus a crown stitch was placed on the levators. 2-0 Vicryl was used to close the deeper tissue on the perineal body. 2-0 chromic was used to close the skin. A Betadine moistened vaginal packing was placed into the vagina. A rectal exam was performed and there were no stitches palpable in the rectum. Sponge, lap, and instrument counts were correct x2. The patient tolerated the procedure well and was taken to PACU in stable condition. 350 cc of clear yellow urine were in the Marie bag. Complications: none Post-operative Condition: stable Disposition: PACU Plan for aftercare: To acute care after recovery
--- NOTE | 2024-09-23 11:14 | SUR.PHASEI ---
Report called to Kristin Stein.
[2024-09-23] MEDS: LACTATED RINGERS 1,000 ML 75 ML IV ×2 (11:42→23:16)
[2024-09-23] MEDS: BENZOCAINE/MENTHOL 1 LOZ PKT 1 EACH PO ×2 (15:11→18:25)
[2024-09-23] MEDS: KETOROLAC 30 MG/ML VIAL IV ×2 (18:13→23:07)
[2024-09-23] MEDS: ACETAMINOPHEN 325 MG TABLET 650 MG PO ×2 (18:14→23:07)
[2024-09-23] MEDS: DOCUSATE 100 MG CAPSULE 200 MG PO (20:36)
[2024-09-24 00:18] VITALS: BP 126/52; PULSE 69; RESP 16; TEMP 36.5; O2SAT 96
[2024-09-24 03:25] VITALS: BP 124/55; PULSE 58; RESP 17; TEMP 36.5; O2SAT 98
[2024-09-24 05:06] LABS: Add Manual Diff / Slide Review NO; Basophils Absolute Auto 100 /uL (0-100); Basophils Percent Auto 0.5 % (0-2); Eosinophils Absolute Auto 0 /uL (0-450); Eosinophils Percent Auto 0.3 % (2-4); Hemoglobin 11.5 g/dL (12.0-16.0); Lymphocytes Absolute Auto 1500 /uL (1100-4500); Lymphocytes Percent Auto 14.5 % (25-40); Mean Corpuscular HGB Conc 33.9 % (30-36); Mean Corpuscular Hemoglobin 29.7 PG (26-34); Mean Corpuscular Volume 87.7 fL (80-100); Monocytes Absolute Auto 700 /uL (0-900); Monocytes Percent Auto 6.3 % (3-14); Neutrophils Absolute Auto 8200 /uL (1500-7000); Neutrophils Percent Auto 78.4 % (50-75); Platelet Count 210 X10^3/uL (150-400); Red Blood Cell Count 3.88 X10^6/uL (4.0-5.2); Red Cell Distribution Width 12.6 % (11.6-14.8); White Blood Cell Count 10.5 X10^3/uL (4.5-11.0)
[2024-09-24] MEDS: KETOROLAC 30 MG/ML VIAL IV (05:40)
[2024-09-24] MEDS: ACETAMINOPHEN 325 MG TABLET 650 MG PO ×2 (05:41→11:22)
[2024-09-24] MEDS: DOCUSATE 100 MG CAPSULE 200 MG PO (08:18)
[2024-09-24 09:38] VITALS: BP 117/63; PULSE 57; RESP 19; TEMP 36.6; O2SAT 99
[2024-09-24] MEDS: OXYCODONE IR 5 MG TABLET PO (11:23)
--- NOTE | 2024-09-24 11:48 | PC.NURSE ---
Discharge: Pt ready to d/c to home. Seen by MD and given discharge instructions. Has voided x2 since gallegos removed. Tolerates diet w/out problems. Minimal use of pain medicatioon. Discharge packet given and reviewed. Rx has been esent. Pt d/c to home via auto w/spouse.
--- NOTE | 2024-09-24 15:26 | CM.DANOTE ---
Initial DCP Assessment Visit Note Reviewed EMR and team rounds for status updates. This CUSTOMER SUPPORT ENGINEER was unable to meet with pt f/f prior to her d/c due to unit triage needs. Pt resides independently with her spouse in their own home in [place]. Her spouse transported her home late this am. She denied any CM assistance needs prior to her departure. [facility] Att[facility]: Dr. Rivas Pt is a 69 year-old F post-op day 1 from a lap assisted vaginal hysterectomy, R-sided ovarian cyst, and symptomatic cystocele removal. She did not have any surgical complications, her pain was well controlled, and she had no further inpt CM needs prior to d/c. She does have a OP f/u plan with Dr. Tay. No further needs indicated at this time. Discharge Planning/Care Management CM Discharge Assessment Start: 09/24/24 15:21 Freq: Status: Active Protocol: Document 09/24/24 15:22 DPL (Rec: 09/24/24 15:25 DPL [id number]) Discharge Planning Assessment Assigned Fuel Tank Sealer And Tester CHRISSIE Brown Advance Directives? No History Provided By Medical Record Expected Length of Stay 1 Prior Living Arrangements House Household Members spouse Type of transporation used prior to Drives own vehicle admit Independent with ADL's Yes Is patient alert and oriented? Yes Caregiver for Another No Comment No identified home d/c needs at this time. Barriers to Discharge No Transportation Arrangement Spouse Referrals Initiated None needed Review Status In Process Please Provide Date Initial DC 09/24/24 Assessment Was Performed Pre-Anesthesia Assessment Start: 09/17/24 08:25 Freq: Status: Complete Protocol: Document 09/17/24 08:25 CAB (Rec: 09/17/24 08:38 CAB [id number]) Pre-Anesthesia Assessment PAC Comment Chart review 09/17/24 Patient Information Reviewed Via Chart Review Primary Care Provider Yaa Minaya Seen Specialist in Last 12 Months Yes Specialist Seen Community Health Advisor Primary Language Occitan Operator Assistant I Cementing Required No Height 167.64 cm Weight 63.049 kg Body Mass Index (BMI) 22.4 Hearing Ability Normal Visual Assist Magnifying Glass Anesthesia Review Requested No Huller Operator No alcohol intake current alcohol intake frequency holidays/special occasions only Smoking Status Never smoker Substance Use Type [#R] does not use History of Falling (Recent or History of Yes ) Patient is completely paralyzed or No completely immobile Mental Status Oriented to own ability Is patient on oxygen? No Hx Sleep Apnea No Currently Taking a Beta Scar No Anti-Coagulant Therapy No Cardiac Testing No Hx Pacemaker/ICD No Pacemaker Rep Required? No Cardiac Clearance Received No Urinary Catheter Present No Hx Urinary Self Catheterization No Diabetes No Patient No Lactating No Marital Status Lives With spouse Patient Discharge Plan Description Return Home
== END 2024-09-24 11:30 | disposition home or self-care (01) ==
LOC: OR 06:44 → AC 11:29
PROVIDERS: Family Provider Nurse Practitioner Family; Referring Provider Obstetrics & Gynecology; Visit Provider Obstetrics & Gynecology
PROC: 0UT9FZZ Resection of Uterus, Via Natural or Artificial Opening With Percutaneous Endoscopic Assistance (ICD-10-PCS; CPT 58552; principal; 2024-09-23 07:45)
PROC: (CPT 58552; 2024-09-23 07:45)
DX: N81.2 Incomplete uterovaginal prolapse (principal)
CPT/HCPCS: 58552; 57260; 36415; 85025; J0131; J0690; J1100; J1171; J1885; J2405; J2704; J3010